=== PATIENT | male | born 1990 | race Caucasian/White ===

== ENCOUNTER 2016-07-01 08:57 | Day surgery (SDC) | payer OTHER ==
[2016-07-01] VITALS (7 sets, daily range): BP systolic 118–146; BP diastolic 79–89
[~2016-07-01] VITALS: Ht 177.8 cm; Wt 104.5 kg
[2016-07-01 09:44] LABS: MEAN CORPUSCULAR HEMOGLOBIN 30.7 PG (26.0-34.0); MEAN CORPUSCULAR VOLUME 85 FL (80-100); MEAN PLATELET VOLUME 10.7 FL (6.0-9.5); PLATELET COUNT 241 10^3uL (150-450); WHITE BLOOD COUNT 19.64 10^3uL (4.0-11.0)
[2016-07-01 09:45] LABS: MEAN CORPUSCULAR HGB CONC 36.1 g/dL (31.0-37.0)
[2016-07-01] MEDS ORDERED: ONDANSETRON 2 MG/ML (Z0FRAN) 2 ML VIAL IV ONE (09:45)
[2016-07-01] MEDS ORDERED: HYDROmorphone 1 MG/ML (DILAUDID) SYRINGE IV ONE (09:45)
[2016-07-01 09:46] LABS: BILIRUBIN,URINE Negative (Negative); CLARITY,URINE Clear; GLUCOSE, URINE (UA) Negative (Negative); LEUKOCYTE ESTERASE ,URINE Negative (Negative); PH,URINE 5.5 (5.0 - 8.0); UROBILINOGEN,URINE 0.2 mg/dL (0.2-1.0)
[2016-07-01 09:48] LABS: COLOR,URINE Dark Yellow
[2016-07-01 09:50] LABS: TOTAL PROTEIN 8.6 g/dL (6.4-8.5)
[2016-07-01 10:00] LABS: BAND NEUTROPHILS % 5 % (0-6); EOSINOPHILS % 0 % (0-4); LYMPHOCYTES # 1.2 #; MONOCYTES % 5 % (3-11); RBC MORPH NORMAL (NORMAL); SEGMENTED NEUTROPHILS % 84 % (51-67); TOTAL CELLS COUNTED 100
--- NOTE | 2016-07-01 10:13 | NUR ---
to x ray, no concerns
[2016-07-01] MEDS ORDERED: NS FLUSH 10 ML PRN IV (13:45)
[2016-07-01] MEDS ORDERED: CEFOXITIN IV SCH (13:45)
[2016-07-01] MEDS ORDERED: NS FLUSH 3 ML PRN IV (13:45)
[2016-07-01] MEDS ORDERED: LACTATED RINGERS 1,000 ML IV SCH ×2 (13:45→17:30)
[2016-07-01] MEDS ORDERED: WATER IV SCH (13:45)
[2016-07-01] MEDS ORDERED: morphine INJ 2 MG/ML 1 ML SYRINGE IV PRN ×2 (13:45→17:30)
[2016-07-01] MEDS ORDERED: MIDAZOLAM 2 MG/2 ML (VERSED) VIAL ONE (14:43)
[2016-07-01] MEDS ORDERED: ALFENTANIL 500 MCG/ML (ALFENTA) 5 ML AMP IV ONE (14:43)
[2016-07-01] MEDS ORDERED: PROPOFOL 20 ML IV ONE (14:44)
[2016-07-01] MEDS ORDERED: BUPIVACAINE/EPINEPHRINE 0.5%-1:200,000 (MARCAINE) 30 ML VIAL INJ ONE (14:55)
[2016-07-01] MEDS ORDERED: SUCCINYLCHOLINE 20 MG/ML 10 ML VIAL ONE (15:15)
[2016-07-01] MEDS ORDERED: ROCURONIUM 50 MG/5 ML (ZEMURON) VIAL IV ONE (15:15)
[2016-07-01] MEDS ORDERED: diphenhydrAMINE 50 MG/ML INJ (BENADRYL) ONE (15:16)
[2016-07-01] MEDS ORDERED: ONDANSETRON 2 MG/ML (Z0FRAN) 2 ML VIAL ONE (15:16)
[2016-07-01] MEDS ORDERED: METOCLOPRAMIDE 10 MG/2 ML (REGLAN) VIAL ONE (15:16)
[2016-07-01] MEDS ORDERED: NEOSTIGMINE 1 MG/ML SYRINGE ONE (16:04)
[2016-07-01] MEDS ORDERED: GLYCOPYRROLATE 0.2 MG/ML (ROBINUL) 1 ML VIAL ONE (16:04)
[2016-07-01] MEDS ORDERED: morphine INJ 4 MG/ML 1 ML SYRINGE ONE (16:25)
--- NOTE | 2016-07-01 17:05 | NUR ---
Condition report received from ARNIE
--- NOTE | 2016-07-01 17:15 | NUR ---
To room 345 per hospital bed - abd incisions dry X4 - reports pain "4" - requesting H2O - father @ bedside - will go to pharmacy with pain med RX
--- NOTE | 2016-07-01 17:17 | NUR ---
Belongings brought to room
[2016-07-01] MEDS ORDERED: HYDROcodone/APAP 5 MG/325 MG (NORCO) TAB PO PRN (17:30)
[2016-07-01] MEDS ORDERED: PROMETHAZINE 25 MG (PHENERGAN) SUPP PR PRN (17:30)
--- NOTE | 2016-07-01 17:33 | NUR ---
[facility] 5 1 tab po for c/o abd pain post op - texting - alert and oriented
--- NOTE | 2016-07-01 17:58 | NUR ---
MED REC COMPLETED-Patient states that no home medications and nothing noted on Ext Med History application.
--- NOTE | 2016-07-01 19:18 | NUR ---
Report given on patient, patient asks for more water and jello. Tries to void at this time, unable. Will continue to monitor. Denies any complaints or needs at this time.
--- NOTE | 2016-07-01 20:19 | NUR ---
Resting soundly in bed with eyes closed. Will see if patient can void at this time. Girlfriend at bedside.
--- NOTE | 2016-07-01 20:49 | NUR ---
Patient voids small amount and then starts again with good flow. Denies pain but describes as dull ache. Discharge instructions reviewed with patient and girlfriend, verbalized understanding and signed discharge instruction form. IV removed from R hand. Belongings with patient, left floor via wheelchair [id number].
== END 2016-07-01 20:40 | disposition home or self-care (01) ==
LOC: EDUNIT# 08:57 → ED 09:00 → ASC 13:09 → ICU 17:04 → ASC 20:40
PROVIDERS: ATTEND Surgery
DX: K80.12 Calculus of gallbladder with acute and chronic cholecystitis without obstruction (principal)
CPT/HCPCS: 36415; 47562; 74022; 76705; 80053; 81003; 83690; 85025; 96374; 96375; 99284; J0330; J1170; J1200; J2250; J2270; J2405; J2710; J2765; J3490